=== PATIENT | male | born 1980 | race Caucasian/White ===

== ENCOUNTER 2020-10-08 10:17 | Emergency (ER) | payer SELFPAY ==
[~2020-10-08] VITALS: Ht 182.9 cm; Wt 81.1 kg
[2020-10-08 10:18] VITALS: BP 117/75
[2020-10-08] MEDS ORDERED: LORazepam 1MG TABLET PO ONE ×2 (10:30→12:00)
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
--- NOTE | 2020-10-08 11:20 | NUR ---
PT CHANGED HIS MIND AND WANTS ATIVAN INSTEADY OF ATARAX.
[2020-10-08] MEDS ORDERED: LORazepam 1MG TABLET ONE (11:37)
--- NOTE | 2020-10-08 11:45 | NUR ---
PT GIVEN CRACKERS PRIOR TAKING ATIVAN. HE STATES IT MAKES HIS STOMACH UPSET
--- NOTE | 2020-10-08 13:08 | NUR ---
PT IS NOT COOPERATING AND IS DEMANDING FOOD. 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
--- NOTE | 2020-10-08 13:32 | NUR ---
ROLLOFF TRUCK DRIVER AT BEDSIDE
--- NOTE | 2020-10-08 15:31 | NUR ---
TASK RN: PT GIVEN ALL BELONGINGS BY PRIMARY RN. DC EDUCATION PROVIDED, PT DEMONSTRATES UNDERSTANDING. PT AMBULATED STEADILY TO DC. provided taxi voucher for safe transport to [facility]
== END 2020-10-08 15:33 | disposition home or self-care (01) ==
LOC: ED 11:52
DX: F41.1 Generalized anxiety disorder (principal)
CPT/HCPCS: 99283; Q0177